=== PATIENT | male | born 1990 | race Caucasian/White ===

== ENCOUNTER 2020-08-06 10:34 | Observation (INO) | payer BC, OTHER ==
[~2020-08-06] VITALS: Ht 177.8 cm; Wt 81.0 kg
[2020-08-06] MEDS: ENOXAPARIN 40MG/0.4ML SYRINGE (J1650 PER 10MG) SC SCH (09:00)
[2020-08-06] MEDS ORDERED: ISOVUE-370 76% 100ML VIAL As Ordered ONE (11:04)
[2020-08-06 11:19] LABS: BASO % 0.3 % (0.0-1.0); EOS % 0.8 % (0.0-3.0); HEMATOCRIT 48.7 % (42.0-52.0); HEMOGLOBIN 16.5 g/dl (13.5-17.5); LYMPH # 1.1 10^3/uL (1.5-5.0); LYMPH % 29.4 % (24.0-44.0); MEAN CORPUSCULAR HEMOGLOBIN 30.2 pg (27.0-33.0); MEAN CORPUSCULAR HGB CONC 33.9 g/dl (32.0-36.5); MEAN CORPUSCULAR VOLUME 89.2 fl (80.0-96.0); MONO # 0.3 10^3/uL (0.0-0.8); MONO % 7.8 % (2.0-8.0); NEUTROPHILS # 2.4 10^3/uL (1.5-8.5); NEUTROPHILS % 61.4 % (36.0-66.0); PLATELET COUNT, AUTOMATED 202 10^3/uL (150-450); RED BLOOD COUNT 5.46 10^6/uL (4.30-6.10); WHITE BLOOD COUNT 3.9 10^3/uL (4.0-10.0)
[2020-08-06 11:32] LABS: INR 0.93; PARTIAL THROMBOPLASTIN TIME 24.8 SECONDS (24.2-38.5); PROTHROMBIN TIME 12.7 SECONDS (12.5-14.3)
[2020-08-06] MEDS ORDERED: ASPIRIN 325 MG TAB PO ONE (11:35)
--- NOTE | 2020-08-06 11:41 | REP ---
INDICATION: CVA - Nursing interventions must not delay CT. COMPARISON: None. TECHNIQUE: Helical scanning is acquired. 5 mm axial images were reformatted. Coronal MPR images were generated. FINDINGS: Bone window settings demonstrate an intact bony calvarium. There is no evidence of skull fracture or incidental bony calvarial lesion. The visualized paranasal sinuses appear clear. No intraorbital abnormality is seen. On soft tissue window setting images; the lateral, third, and fourth ventricles are normal in size and position. Edmond-white differentiation pattern is normal above and below the tentorium. There are is no evidence of intracranial hemorrhage. No mass, edema, infarction, or midline shift is seen. No extra-axial fluid collection is appreciated. IMPRESSION: Negative noncontrast head CT. <Electronically signed by José Miguel Hendricks > 08/06/20 [id number]
--- NOTE | 2020-08-06 11:44 | REP ---
INDICATION: CVA - Nursing interventions must not delay CT. COMPARISON: None. TECHNIQUE: CT contrast dose: 100 ml of intravenous Isovue 370. CT technique: Helical scanning is acquired. 2 mm axial images are reformatted. Maximal intensity projection and multiplanar re-formation images are generated along with 3-D surface rendered color imaging which is viewed rotational. FINDINGS: There is minimal mucosal thickening in the floor of the right maxillary sinus. The right distal vertebral artery appears to be small. The left distal vertebral artery is dominant. Basilar artery is widely patent. Posterior cerebral and superior cerebellar arteries are unremarkable bilaterally. The distal internal carotid arteries are patent. Anterior and middle cerebral arteries are unremarkable bilaterally. There is no evidence of marquez aneurysm or arteriovenous malformation. No vessel cutoff is appreciated. The sagittal, straight, and sigmoid sinuses are patent. No venous abnormality is observed. IMPRESSION: No acute abnormality seen. Left dominant vertebrals. Dural sinuses appear patent. <Electronically signed by José Miguel Hendricks > 08/06/20 [id number]
--- NOTE | 2020-08-06 11:45 | REP ---
INDICATION: CVA - Nursing interventions must not delay CT COMPARISON: None. TECHNIQUE: Contrast enhancement dose is 100 mL of intravenous Isovue 370. Helical scanning is acquired. 2 mm axial images are re-formatted. Coronal and sagittal MPR images are generated. Coronal and sagittal MIP and oblique MPR images are generated. 3D surface rendered images are generated and viewed rotationally. FINDINGS: The visualized aortic arch and great vessel origins are unremarkable. The common carotid arteries are widely patent bilaterally. Carotid bifurcations are clear. The internal carotid arteries are unremarkable bilaterally. The right vertebral artery is smaller than the left but patent. No vertebral artery abnormality is seen. IMPRESSION: Left dominant vertebrals. Both are patent. Otherwise unremarkable CT angiography of the neck. <Electronically signed by José Miguel Hendricks > 08/06/20 [id number]
[2020-08-06 11:47] LABS: CK-MB VALUE MASS < 1.0 NG/ML (<3.6); CPK CREATINE PHOSPHOKINASE 276 U/L (39-308); MB/CK RELATIVE INDEX 0.36 (< OR =4); TROPONIN I < 0.02 NG/ML (< 0.10)
--- NOTE | 2020-08-06 12:03 | REP ---
INDICATION: CVA. COMPARISON: Comparison chest x-ray May 23, 2009. TECHNIQUE: Portable upright AP chest radiograph. FINDINGS: The lungs are well inflated and free of infiltrate. Pleural angles are sharp. Heart size is normal. Pulmonary vasculature is not increased. EKG monitoring electrodes are seen. IMPRESSION: No active disease. <Electronically signed by José Miguel Hendricks > 08/06/20 [id number]
[2020-08-06] MEDS ORDERED: ACETAMINOPHEN TAB 650MG DOSE (2X325MG) PO PRN (12:05)
--- NOTE | 2020-08-06 12:24 | HPEPDOC ---
General Date of Admission Date of Service: August 06, 2020 Chief Complaint The patient is a 29-year-old male admitted with a reason for visit of Numbness/Dizziness. Source: Patient Exam Limitations: No limitations Timing/Duration: 1-3 hours History of Present Illness Patient is 29 years old male without significant past medical history presented hospital with lip and left arm numbness. Patient stated that around 9 AM when he was on his work he started feeling numbness of his left part of the lip slow spreading to his shoulder and left arm. Patient denies any mental confusion, difficulties in articulation, extremity weakness. He stated that after one hour he is left arm and shoulder numbness resolved. In ER patient continues to have lip numbness. Patient refused TPA. Head CT scan was done and it was negative for stroke. Labs unremarkable. EKG did not show any acute ischemic changes, sinus rhythm Allergies Coded Allergies: No Known Allergies (Unverified , 08/06/20) Past Medical History Medical History No significant medical history Family History Mother had stroke around 40 years old Social History * Smoker: current smoker Alcohol: occationally Drugs: denies A-FIB/CHADSVASC A-FIB History Current/History of A-Fib/PAF?: No Current PO Anticoag Therapy: No Review of Systems Constitutional: Denies: Chills, Fever Eyes: Denies: Pain Skin: Denies: Rash, Lesions Pulmonary: Denies: Dyspnea, Cough Cardiovascular: Denies: Chest Pain Gastrointestinal: Denies: Nausea, Vomiting Genitourinary: Denies: Dysuria Hematologic: Denies: Bruising Endocrine: Denies: Polydipsia Musculoskeletal: Denies: Neck Pain Neurological: Reports: Numbness (lips, left shoulder and left arm); Denies: Weakness Psych: Reports: Mood Normal Physical Examination General Exam: Positive: Alert, Cooperative Eye Exam: Positive: PERRLA ENT Exam: Positive: Atraumatic Neck Exam: Positive: Supple; Negative: JVD Chest Exam: Positive: Clear to auscultation Heart Exam: Positive: Rate Normal Telemetry: Positive: No significant arrhythmia Abdomen Exam: Positive: Normal bowel sounds Extremity Exam: Negative: Clubbing, Cyanosis Skin Exam: Positive: Nl turgor and temperature Neuro Exam: Positive: Normal Gait, Strength at 5/5 X4 ext; Negative: Sensation Intact (numbness of left part of the lip) Psych Exam: Positive: Mental status NL, Oriented x 3 Vital Signs Vital Signs Date Time Temp Pulse Resp B/P (MAP) Pulse Ox O2 Delivery O2 Flow Rate FiO2 08/06/20 10:34 97.4 73 19 145/82 (103) 99 Room Air Laboratory Data Labs 24H Laboratory Tests 2 08/06/20 11:01: POC Glucose (Misc Panel) 106H, POC Sodium (Misc Panel) 140, POC Potassium (Misc Panel) 4.3, POC Chloride (Misc Panel) 103, POC Total CO2 (Misc Panel) 29.0H, POC Blood Urea Nitrogen (Misc Panel 17, POC Ionized Calcium (Misc Panel) 4.9, POC Creatinine (Misc Panel) 0.9, POC Hematocrit (Misc Panel) 47.0 08/06/20 11:04: Immature Granulocyte % (Auto) 0.3, Neutrophils (%) (Auto) 61.4, Lymphocytes (%) (Auto) 29.4, Monocytes (%) (Auto) 7.8, Eosinophils (%) (Auto) 0.8, Basophils (%) (Auto) 0.3, Neutrophils # (Auto) 2.4, Lymphocytes # (Auto) 1.1L, Monocytes # (Auto) 0.3, Eosinophils # (Auto) 0.0, Basophils # (Auto) 0.0, Nucleated Red Blood Cells % (auto) 0.0 08/06/20 11:05: Prothrombin Time 12.7, Prothromb Time International Ratio 0.93, Activated Partia l Thromboplast Time 24.8L, Total Creatine Kinase 276, Creatine Kinase MB < 1.0, Creatine Kinase MB Relative Index 0.36, Troponin I < 0.02 CBC/BMP Laboratory Tests 08/06/20 11:04 Assessment/Plan Patient is 29 years old male without significant past medical history presented hospital with lip and left arm numbness. Patient stated that around 9 AM when he was on his work he started feeling numbness of his left part of the lip slow spreading to his shoulder and left arm. Patient denies any mental confusion, difficulties in articulation, extremity weakness. He stated that after one hour he is left arm and shoulder numbness resolved. In ER patient continues to have lip numbness. Patient refused TPA. Head CT scan was done and it was negative for stroke. Labs unremarkable. EKG did not show any acute ischemic changes, sinus rhythm Problems (1) Non-hemorrhagic cerebrovascular accident (CVA) Status: Acute Problem Text: Initial diagnosis includes CVA versus TIA MRI MRA Echo Aspirin, statin Plan / VTE VTE Prophylaxis Ordered?: Yes RAYNA MEDINA DO August 06, 2020 12:24
[2020-08-06 13:10] LABS: RSV AMPLIFICATION NEGATIVE (NEGATIVE)
[2020-08-06 16:43] LABS: AMPHETAMINES LEVEL URINE NEGATIVE (NEGATIVE); BARBITURATES URINE NEGATIVE (NEGATIVE); BENZODIAZEPINES URINE NEGATIVE (NEGATIVE); CANNABINOIDS URINE NEGATIVE (NEGATIVE); COCAINE METABOLITE URINE NEGATIVE (NEGATIVE); METHADONE URINE NEGATIVE (NEGATIVE); OPIATES URINE NEGATIVE (NEGATIVE); PHENCYCLIDINE URINE NEGATIVE (NEGATIVE)
[2020-08-06 17:00] VITALS: BP_SYST 147; BP_DIAS 83; BP_DIAS 85
--- NOTE | 2020-08-06 19:40 | ECGEPIP ---
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
[2020-08-06 21:00] VITALS: BP 124/77
[2020-08-06] MEDS: ATORVASTATIN 20 MG TAB PO SCH (21:01)
[2020-08-06 22:00] VITALS: BP 136/83
[2020-08-07] VITALS (7 sets, daily range): BP systolic 128–135; BP diastolic 59–82
[2020-08-07] MEDS: ENOXAPARIN 40MG/0.4ML SYRINGE (J1650 PER 10MG) SC SCH (09:00)
[2020-08-07] MEDS: ASPIRIN 81 MG CHEW TABLET PO SCH (09:46)
--- NOTE | 2020-08-07 14:04 | IPNPDOC ---
Text Note Date of Service The patient was seen on 08/07/20. NOTE Subjective: No any acute events overnight. Patient stated that his numbness resolved. He denied any visual disturbance, headache or limb weakness Objective: GENERAL APPEARANCE: NAD HEENT: no scleral icterus, no JVD, EOMI CARDIOVASCULAR: S1S2 LUNGS: CTA ABDOMEN: soft & not tender w palpitation MUSCULOSKELETAL: no cyanosis, no swelling INTEGUMENT: no generalized pallor NEUROLOGICAL: cranial nerve function from 2-12 intact intact, follows commands, speech not dysarthric Assessment/Plan Patient is 29 years old male without significant past medical history presented hospital with lip and left arm numbness. Patient stated that around 9 AM when he was on his work he started feeling numbness of his left part of the lip slow spreading to his shoulder and left arm. Patient denies any mental confusion, difficulties in articulation, extremity weakness. He stated that after one hour he is left arm and shoulder numbness resolved. In ER patient continues to have lip numbness. Patient refused TPA. Head CT scan was done and it was negative for stroke. Labs unremarkable. EKG did not show any acute ischemic changes, sinus rhythm Problems (1) Non-hemorrhagic cerebrovascular accident (CVA) Initial diagnosis includes CVA versus TIA Await MRI. CT negative, CTA negative Await Echo Aspirin, statin VS,Fishbone, I+O VS, Fishbone, I+O Vital Signs Date Time Temp Pulse Resp B/P (MAP) Pulse Ox O2 Delivery O2 Flow Rate FiO2 08/07/20 09:48 97.1 65 17 128/82 98 Room Air I&O- Last 24 Hours up to 6 AM 08/07/20 06:00 Intake Total 550 ml Output Total 800 ml Balance -250 ml RAYNA MEDINA DO August 07, 2020 14:04
[2020-08-07] MEDS: ATORVASTATIN 20 MG TAB PO SCH (20:21)
--- NOTE | 2020-08-07 20:53 | REPVR ---
PROCEDURE INFORMATION: Exam: MR Head Without Contrast Exam date and time: 08/07/2020 7:46 PM Age: 29 years old Clinical indication: Pain; Headache not specified; Additional info: Stroke TECHNIQUE: Imaging protocol: MR of the head without contrast. COMPARISON: 1. CT Head without contrast 08/06/2020 11:[address] ANGIO HEAD 08/06/2020 11:05:43 AM FINDINGS: Brain: No restricted diffusion within the brain to suggest an acute infarct. No significant cerebral white matter disease. No cerebral edema. No intracranial mass effect. No magnetic susceptibility intracerebral blood products/hemosiderin visualized. Cerebral ventricles: No ventriculomegaly. Bones/joints: Unremarkable, as visualized. Paranasal sinuses: Mucous retention cysts or polyps are visualized within the bilateral maxillary sinuses. Minimal mucosal thickening of scattered ethmoid air cells. Mastoid air cells: No mastoid effusion. Orbital cavity: Unremarkable. Soft tissues: Unremarkable, as visualized. Vertebral arteries: A dominant left vertebral artery is visualized. The distal right vertebral artery is poorly visualized. Refer to the recent CTA head report. IMPRESSION: 1. No acute intracranial abnormality. 2. Paranasal sinus disease. 3. Additional findings described above. Electronically signed by: Edward Key On 08/07/2020 20:52:46 PM
[2020-08-08 06:00] VITALS: BP 111/78
[2020-08-08] MEDS ORDERED: ASPI81CH8 PO (07:27)
[2020-08-08] MEDS: ENOXAPARIN 40MG/0.4ML SYRINGE (J1650 PER 10MG) SC SCH (09:00)
[2020-08-08] MEDS: ASPIRIN 81 MG CHEW TABLET PO SCH (09:10)
--- NOTE | 2020-08-08 10:01 | ECHO ---
DATE OF PROCEDURE: 08/06/2020 Age: 29 Gender: Male Height: 70 inches Weight: 180 pounds Body surface area: 2.0 m2 PATIENT LOCATION: Inpatient [address] [place] [address], Room 4221. REFERRING PHYSICIAN: Panchito Miller, DO INDICATION: Transient ischemic attack (TIA) ? Consider cardiac origin of embolic material ? MEASUREMENTS: 2D Measurements: RV 3.5 cm LV 4.7 cm Septum 1.1 cm Posterior wall 1.1 cm Aortic Root 3.6 cm LA 3.3 cm LVEF 65% Doppler Measurements: AV 1.29 m/s LVOT 0.9 m/s LVOT diameter 2.0 cm MV-E 67, A 46, E/A ratio 1.5 Early mitral deceleration time 160 msec PV 1.0 m/s Pulmonary artery acceleration time 132 msec PASP 24 mmHg IVC 1.2 cm COMMENTS: Normal sinus rhythm without intraventricular conduction disturbance. M-mode and two-dimensional echocardiography was performed with pulse, continuous wave, color flow Doppler. There was also a saline contrast bubble study performed. Normal left ventricular size, wall thickness, and wall motion. Normal left atrial size and Doppler assessment of LV diastolic function and estimated mean left atrial pressure. Normal right heart chamber sizes and motion and estimated pulmonary arterial pressure. Somewhat small IVC size and complete collapse suggestive of a low central venous pressure. Normal aortic dimensions. Normal appearing and functioning aortic valve. Normal appearing and functioning mitral valve with no prolapse. Normal appearing and functioning tricuspid valve with no more than trace insufficiency. No apparent intracardiac mass or pericardial effusion. Saline contrast bubble study was performed from the apical four chamber projection using agitated saline 10 mL administered bolus through a large forearm vein. There was excellent opacification of right heart chambers with no evidence of contrast entering the left heart. ELIDIAD
--- NOTE | 2020-08-08 11:29 | DS.PDOC ---
Discharge Summary General Date of Admission August 06, 2020 at 17:00 Date of Discharge 08/08/20 Discharge Summary PROCEDURES PERFORMED DURING STAY: [None]. ADMITTING DIAGNOSES: Non-hemorrhagic cerebrovascular accident (CVA) DISCHARGE DIAGNOSES: TIA COMPLICATIONS/CHIEF COMPLAINT: Numbness/Dizziness. HISTORY OF PRESENT ILLNESS: Patient is 29 years old male without significant past medical history presented hospital with lip and left arm numbness. Patient stated that around 9 AM when he was on his work he started feeling numbness of his left part of the lip slow spreading to his shoulder and left arm. Patient denies any mental confusion, difficulties in articulation, extremity weakness. He stated that after one hour he is left arm and shoulder numbness resolved. In ER patient continues to have lip numbness. Patient refused TPA. Head CT scan was done and it was negative for stroke. Labs unremarkable. EKG did not show any a cute ischemic changes, sinus rhythm HOSPITAL COURSE: During hospital stay the following issues addressed (1) Non-hemorrhagic cerebrovascular accident (CVA) Initial diagnosis includes CVA versus TIA Imaging study negative Echo wnl Patient received Aspirin, statin. Today in the morning all symptoms resolved DISCHARGE MEDICATIONS: Please see below. ALLERGIES: Please see below. PHYSICAL EXAMINATION ON DISCHARGE: VITAL SIGNS: Please see below. GENERAL APPEARANCE: NAD HEENT: no scleral icterus, no JVD, EOMI CARDIOVASCULAR: S1S2 LUNGS: CTA ABDOMEN: soft & not tender w palpitation MUSCULOSKELETAL: no cyanosis, no swelling INTEGUMENT: no generalized pallor NEUROLOGICAL: cranial nerve function from 2-12 intact intact, follows commands, speech not dysarthric LABORATORY DATA: Please see below. IMAGING: [facility] NAME: JOSEPH ALFREDO DATE OF : 1990 BUSINESS NUMBER: [id number] AGE: 29 SEX: M REPORT #: [id number] ROOM: [facility] TECHNOLOG[facility]: [facility] DOCTOR: RAYNA MEDINA DO Ordered for Date&Time: 08/07/20 1630 cc: [~ rep ct ivnm] Service Date&Time: 08/07/201945 This report is in Signed status. Interpretation performed by [facility]. Thank you for having your radiology procedures performed at [facility] RADIOLOGY REPORT Date&Time printed: [~ rep prt dt last] [~ rep prt tm last] Page 2 of [address] [address] RADIOLOGY REPORT This report is in Signed status. Interpretation performed by [facility]. Thank you for having your radiology procedures performed at [facility] RADIOLOGY REPORT Date&Time printed: [~ rep prt dt last] [~ rep prt tm last] Page 1 of 1 PROCEDURE INFORMATION: Exam: MR Head Without Contrast Exam date and time: 08/07/2020 7:46 PM Age: 29 years old Clinical indication: Pain; Headache not specified; Additional info: Stroke TECHNIQUE: Imaging protocol: MR of the head without contrast. COMPARISON: 1. CT Head without contrast 08/06/2020 11:[address] ANGIO HEAD 08/06/2020 11:05:43 AM FINDINGS: Brain: No restricted diffusion within the brain to suggest an acute infarct. No significant cerebral white matter disease. No cerebral edema. No intracranial mass effect. No magnetic susceptibility intracerebral blood products/hemosiderin visualized. Cerebral ventricles: No ventriculomegaly. Bones/joints: Unremarkable, as visualized. Paranasal sinuses: Mucous retention cysts or polyps are visualized within the bilateral maxillary sinuses. Minimal mucosal thickening of scattered ethmoid air cells. Mastoid air cells: No mastoid effusion. Orbital cavity: Unremarkable. Soft tissues: Unremarkable, as visualized. Vertebral arteries: A dominant left vertebral artery is visualized. The distal right vertebral artery is poorly visualized. Refer to the recent CTA head report. IMPRESSION: 1. No acute intracranial abnormality. 2. Paranasal sinus disease. 3. Additional findings described above. Electronically signed by: Edward Key On 08/07/2020 20:52:46 PM DD: EDWARD KEY MD 08/07/201945 DT: ROMAIN 08/07/202051 DS: GIDEON 08/07/202051 [~ rep ct labl] [facility] NAME: JOSEPH ALFREDO DATE OF : 1990 AGE: 29 SEX: M REPORT #: [id number] ROOM: ED TECHNOLOGIST: EVER DOCTOR: Stephanie Chand MD Ordered for Date&Time: 08/06/20 1052 cc: [~ rep ct ivnm] Service Date&Time: This report is in Signed status. If this report is in a DRAFT status it has not yet been reviewed by the radiologist for accuracy. Thank you for having your radiology procedures performed at [facility] RADIOLOGY REPORT Date&Time printed: [~ rep prt dt last] [~ rep prt tm last] Page 2 of [address] [address] RADIOLOGY REPORT This report is in Signed status. If this report is in a DRAFT status it has not yet been reviewed by the radiologist for accuracy. Thank you for having your radiology procedures performed at [facility] RADIOLOGY REPORT Date&Time printed: [~ rep prt dt last] [~ rep prt tm last] Page 1 of 1 CVA - Nursing interventions must not delay CT COMPARISON: None. TECHNIQUE: Contrast enhancement dose is 100 mL of intravenous Isovue 370. Helical scanning is acquired. 2 mm axial images are re-formatted. Coronal and sagittal MPR images are generated. Coronal and sagittal MIP and oblique MPR images are generated. 3D surface rendered images are generated and viewed rotationally. FINDINGS: The visualized aortic arch and great vessel origins are unremarkable. The common carotid arteries are widely patent bilaterally. Carotid bifurcations are clear. The internal carotid arteries are unremarkable bilaterally. The right vertebral artery is smaller than the left but patent. No vertebral artery abnormality is seen. IMPRESSION: Left dominant vertebrals. Both are patent. Otherwise unremarkable CT angiography of the neck. <Electronically signed by José Miguel Hendricks > 08/06/20 1142 DD: Mario Hendricks MD 08/06/20 1140 DT: RASHI 08/06/20 1142 DS: LIUS 08/06/20 1140 08/06/20 1140 [~ rep ct labl] DATE OF PROCEDURE: 08/06/2020 Age: 29 Gender: Male Height: 70 inches Weight: 180 pounds Body surface area: 2.0 m2 PATIENT LOCATION: Inpatient [address] [place] [address], Room 4221. REFERRING PHYSICIAN: Rayna Medina, DO INDICATION: Transient ischemic attack (TIA) ? Consider cardiac origin of embolicmaterial ? MEASUREMENTS: 2D Measurements: RV 3.5 cm LV 4.7 cm Septum 1.1 cm Posterior wall 1.1 cm Aortic Root 3.6 cm LA 3.3 cm LVEF 65% Doppler Measurements: AV 1.29 m/s LVOT 0.9 m/s LVOT diameter 2.0 cm MV-E 67, A 46, E/A ratio 1.5 Early mitral deceleration time 160 msec PV 1.0 m/s Pulmonary artery acceleration time 132 msec PASP 24 mmHg IVC 1.2 cm COMMENTS: Normal sinus rhythm without intraventricular conduction disturbance. M-mode and two-dimensional echocardiography was performed with pulse, continuouswave, color flow Doppler. There was also a saline contrast bubble study performed. Normal left ventricular size, wall thickness, and wall motion. Normal left atrial size and Doppler assessment of LV diastolic function and estimated mean left atrial pressure. Normal right heart chamber sizes and motion and estimated pulmonary arterial pressure. Somewhat small IVC size and complete collapse suggestive of a low central venouspressure. Normal aortic dimensions. Normal appearing and functioning aortic valve. Normal appearing and functioning mitral valve with no prolapse. Normal appearing and functioning tricuspid valve with no more than trace insufficiency. No apparent intracardiac mass or pericardial effusion. Saline contrast bubble study was performed from the apical four chamber projection using agitated saline 10 mL administered bolus through a large forearm vein. There was excellent opacification of right heart chambers with no evidence of contrast entering the left heart. DD: Jose Ball MD, [facility] 08/07/20 1557 [id number] DS: DS2: PROGNOSIS: Fair ACTIVITY: [As tolerated]. DIET: Regular DISPOSITION: 01 Home, Self-Care. ITEMS TO FOLLOWUP ON ON OUTPATIENT: Follow-up with neurologist in 7 days DISCHARGE CONDITION: [Stable]. TIME SPENT ON DISCHARGE: 30minutes. Vital Signs/I&Os Vital Signs Date Time Temp Pulse Resp B/P (MAP) Pulse Ox O2 Delivery O2 Flow Rate FiO2 08/08/20 06:00 97.8 59 17 111/78 (89) 97 Room Air I&O- Last 24 Hours up to 6 AM 08/08/20 06:00 Intake Total 2045 ml Balance 2045 ml Laboratory Data Labs 24H Laboratory Tests 2 08/08/20 08:33: Discharge Medications Scheduled Aspirin (Children's Aspirin) 81 Mg Tab.chew, 81 MG PO DAILY Allergies Coded Allergies: No Known Allergies (Unverified , 08/06/20) RAYNA MEDINA DO August 08, 2020 11:29
[2020-08-09 16:09] LABS: Lyme Disease IgG/IgM Antibodie <0.91 ISR (0.00-0.90); Lyme Disease IgM Ab Quantitati <0.80 index (0.00-0.79)
== END 2020-08-08 09:31 | disposition home or self-care (01) ==
LOC: M ED 10:34 → ENRESERV 16:01 → M MSPAV 17:00 → M ED 17:09
PROVIDERS: ADMIT Internal Medicine; ATTEND Internal Medicine
DX: G45.9 Transient cerebral ischemic attack, unspecified (principal); R42 Dizziness and giddiness; R20.2 Paresthesia of skin; F17.218 Nicotine dependence, cigarettes, with other nicotine-induced disorders
CPT/HCPCS: 36415; 70450; 70496; 70498; 70551; 71045; 80047; 80307; 82550; 82553; 84484; 85025; 85610; 85730; 86617; 87631; 93005; 93041; 93306; 94760; 99285; Q9967

== ENCOUNTER → 2020-08-31 | Outpatient (REF) | payer OTHER ==
[~2020-08-31] MED LIST: ASPI81CH8 PO
[2020-08-31 18:04] LABS: ALBUMIN 4.3 GM/DL (3.2-5.2); ALT/SGPT 31 U/L (12-78); BILIRUBIN,TOTAL 0.4 MG/DL (0.2-1.0); BLOOD UREA NITROGEN 17 MG/DL (7-18); CALCIUM LEVEL 9.3 MG/DL (8.5-10.1); CARBON DIOXIDE LEVEL 30 MEQ/L (21-32); CHLORIDE LEVEL 107 MEQ/L (98-107); CHOLESTEROL LEVEL 205 MG/DL (<200); CREATININE FOR GFR 0.87 MG/DL (0.70-1.30); GLOMERULAR FILTRATION RATE > 60.0 (>60); GLUCOSE, FASTING 76 MG/DL (70-100); HDL CHOLESTEROL 50 MG/DL (>40); LDL CHOLESTEROL 129 MG/DL (<100); NON-HDL-C 155 MG/DL; POTASSIUM SERUM 4.2 MEQ/L (3.5-5.1); SODIUM LEVEL 141 MEQ/L (136-145); TOTAL PROTEIN 7.2 GM/DL (6.4-8.2); TRIGLYCERIDES LEVEL 132 MG/DL (<150)
[2020-08-31 18:19] LABS: HEMOGLOBIN A1c 4.6 %
[2020-08-31 18:51] LABS: HIV 1&2 SCREEN CENTAUR NEGATIVE (NEGATIVE)
== END ==
LOC: M SFHCPLAZ 14:42
DX: Z13.220 Encounter for screening for lipoid disorders (principal); Z13.1 Encounter for screening for diabetes mellitus; Z11.59 Encounter for screening for other viral diseases; Z11.4 Encounter for screening for human immunodeficiency virus [HIV]